=== PATIENT | male | born 1960 | race Caucasian/White ===

== ENCOUNTER 2017-03-05 10:52 | Inpatient (IN) ==
[2017-03-05] MEDS ORDERED: CeFAZolin Pre 2,000 MG/100 ML 2,000 MG/100 ML BAG IVPB ONE (11:07)
[2017-03-05] MEDS ORDERED: Albuterol 2.5 MG/3 ML NEBULIZER IH ONE (11:07)
[2017-03-05] MEDS ORDERED: Ringers Solution, Lactated 1,000 ML IVC SCH (11:15)
[2017-03-05] MEDS ORDERED: *HR* FentaNYL (PF) 100 MCG/2 ML VIAL ONE ×2 (11:18→12:56)
[2017-03-05] MEDS ORDERED: *HR* Midazolam HCl 2 MG/2 ML VIAL ONE ×2 (11:19→12:12)
[2017-03-05] MEDS ORDERED: *HR* Propofol 200 MG/20 ML VIAL IVP ONE (11:19)
[2017-03-05] MEDS ORDERED: Gabapentin 300 MG CAPSULE PO ONE (11:24)
[2017-03-05] MEDS ORDERED: Famotidine 20 MG/2 ML VIAL IVP ONE (11:24)
[2017-03-05] MEDS ORDERED: Acetaminophen IV 1,000 MG/100 ML INFUS..BTL IVPB ONE (11:24)
[2017-03-05] MEDS ORDERED: Heparin 1,000 UNITS/500 mL NS 500 ML ONE (11:45)
--- NOTE | 2017-03-05 11:50 | Anesthesia Evaluation PreOp ---
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: Denies Any Significant HX Other Medical History: Denies Any Significant HX Anesthesia History: No Prior Anesthetic Complications Alcohol Use: none Drug use: marijuana Medications and Allergies Allergies No Known Allergies Allergy (Verified 03/05/17 11:07) - Meds/Allergy Pre-op Review Medications Reviewed: Yes Allergies Reviewed: Yes Beta Blockers on Current Med List: No Anesthesia Results - Labs Laboratory Tests 02/14/17 02/14/17 15:36 15:36 Hgb 14.9 Hct 41.1 Plt Count 298 Sodium 139 Potassium 3.9 BUN 18 Creatinine 1.06 Type and Screen Anesthesia Exam O2 Sat Height 1.73 m Height 1.73 m Weight 85.275 kg Weight 85.275 kg Height: 5'8 Weight: 188 lbs NPO (# of Hours): MN Pain Scale: 0 - HEENT Pupil (Motor): Pupils equal, EOMI Mallampati: II Teeth: Normal Oral Opening: Greater than 3 - GERMINATION TESTING MANAGER LOC: Oriented GERMINATION TESTING MANAGER Motor: Normal RUE, Normal LUE, Normal RLE, Normal LLE, Normal Face GERMINATION TESTING MANAGER Sensory: Normal: RUE, LUE, RLE, LLE, Face - Cardiac Rhythm: Regular Murmur: None JVD: No Carotid Bruit: No - Pulmonary Breath Sounds: bilateral Clear Respiratory Effort: Symmetrical Anesthesia Assess/Plan ASA Score: 2 Modified Christopher Scale for Level of Consciousness: Cooperative, oriented, and tranquil Anesthetic Plan: General Monitoring Plan: Standard Monitors Recovery Plan: PACU (Discussed GA, agrees to proceed)
--- NOTE | 2017-03-05 11:50 | History & Physical Report ---
Date of Encounter: 03/05/17 Time of Encounter: 11:49 24 Hour HP Update - Instructions Instructions: If the History and Physical is less than 30 days old and was completed prior to A.M. admission and or procedure and has NOT been updated on calendar day of procedure please complete this update prior to performing procedure. - Update Patient reports changes in Medical Condition: No Changes in examination, assessment, or condition: No Changes in Medication: No Preop tests/diagnostics Reviewed: Yes Surgery Remains Indicated: Yes Consent for Planned Operative Procedure(s) Verified: Yes - Pre-Operative Checklist Preoperative Checklist Indicated: Yes Prophylactic Antibiotic Ordered: Yes Home Medications Include Beta Katarina: No Beta Katarina Taken Today (Day of Surgery): No Beta Katarina Taken Yesterday (Day Prior to Surgery): No Is VTE Prophylaxis Indicated?: Yes
[2017-03-05] MEDS ORDERED: Bupivacaine/EPI 1:200k 0.25%PF 30 ML VIAL ONE (11:53)
[2017-03-05] MEDS ORDERED: Lidocaine -MPF 2% 2 ML VIAL ONE (12:10)
[2017-03-05] MEDS ORDERED: *HR* Metoprolol 5 MG/5 ML VIAL IVP ONE (12:52)
[2017-03-05] MEDS ORDERED: Propofol 500 MG/50 ML INFUS..BTL ONE (12:52)
[2017-03-05] MEDS ORDERED: *HR* HYDROmorphone 2 MG/ML SYRINGE ONE (13:38)
[2017-03-05] MEDS ORDERED: Dexamethasone 4 MG/ML VIAL ONE (13:45)
[2017-03-05] MEDS ORDERED: Ondansetron 4 MG/2 ML VIAL ONE (13:45)
[2017-03-05] MEDS ORDERED: *HR* Rocuronium Bromide 50 MG/5 ML VIAL ONE (14:05)
[2017-03-05] MEDS ORDERED: Neostigmine Methylsulfate 3 MG/3 ML SYRINGE ONE (14:09)
[2017-03-05] MEDS ORDERED: *HR* Labetalol 20 MG/4 ML SYRINGE IVP ONE ×2 (14:59→15:22)
[2017-03-05] MEDS ORDERED: *HR* Promethazine 25 MG/ML VIAL IVP PRN ×2 (15:08→15:09)
[2017-03-05] MEDS ORDERED: *HR* HYDROmorphone (PF) 1 MG/ML SYRINGE IVP PRN ×2 (15:08→15:09)
[2017-03-05] MEDS ORDERED: *HR* Promethazine 25 MG/ML VIAL ONE (15:09)
[2017-03-05] MEDS ORDERED: Ondansetron 4 MG/2 ML VIAL IVP ONE (15:09)
[2017-03-05] MEDS ORDERED: *HR* Labetalol 20 MG/4 ML SYRINGE IVP PRN (15:11)
--- NOTE | 2017-03-05 15:12 | Operative Note ---
Date of procedure: 03/05/17 Pre-op diagnosis: Left renal mass Post-op diagnosis: same Procedure: Hand-assisted laparoscopic left radical nephrectomy Anesthesia: UCHE Surgeon: Jimmy Cordero Estimated blood loss (cc): 50 Specimen: Kidney Condition: stable Disposition: PACU Procedure in Detail: Patient was taken back to the operating room positioned supine on the operating table. Anesthesia was applied without complication. Smith catheter was placed with return of clear urine. Patient was then moved into position which was a modified left lateral with the patient's left flank up approximately 45. Beanbag was positioned beneath the patient to aid in securing the patient's position. Left arm was brought over and secured with a pillow over the right arm. Patient was taped down and a leather strap used for security. Patient was prepped and draped sterile fashion timeout was performed from the proper patient and procedure. CT scan images were displaced in the room which confirmed a 7 cm posterior left renal mass. Started the procedure with a 15 blade scalpel to make a 7 cm incision to the left aspect of the umbilicus. Underlying tissue was dissected elect cautery Bovie. The fascia was encountered and incised with the Bovie. I then bluntly entered the peritoneal cavity and carefully dissected enough space to allow for the gelport. GelPort was placed without complication and a 12 mm trocar was placed through the port to provide pneumoperitoneum. I examined the abdomen with a 0 camera to confirm there were minimal adhesions. I then removed the port in place my hand through the GelPort. Under guidance of my hand I placed two 12 mm ports. The first was in the midline below the xiphoid process. The second was in the left lower quadrant. They were placed without complication. Using a Harmonic scalpel identified and dissected the white line of Toldt to reflect the left hemicolon. Dissection was carried out from the splenocolic juncture down to the sigmoid colon. I had excellent exposure of the retroperitoneum. Blunt dissection was carried out posterior and inferior to the kidney. I was able to eventually identify the gonadal vein but did not ligate the vein. The ureter was identified and transected using the Harmonic. This provided excellent access to the hilar area of the kidney. I was able to palpate the pulsatile renal artery. I gently dissected around the hilar area with my index finger to create a space for the endovascular stapler. I obtain the 45 mm articulating endovascular stapler and was able to gently place this around the hilar vessels. The hilar vessels were stapled and transected without significant bleeding. I used 4 additional vascular loads to carry out my dissection superior to this and across the adrenal gland. The remaining attachments were dissected using the Harmonic until the kidney was completely free. I used the large Endo Catch bag and placed this through the hand port was able to maneuver the kidney into the Endo Catch bag. I was able to extract the kidney through the HandPort without enlarging the incision. I re-administered pneumoperitoneum and carefully examine the hilum. laps had been removed from the abdomen at this point and there was no significant bleeding from the hilum or splenic area. I placed 2 Surgicel in the hilar space and draped the colon back over the hilum. bowel appeared intact without injury. I then removed the GelPort closed the fascia with a #1 loop PDS. Eloina's fascia was closed with a 2-0 Vicryl and the skin with 4-0 Monocryl and Dermabond. The to 12 mm port sites were closed with Vicryl and Monocryl and Dermabond. All counts were correct at the end the procedure. There were no major complications during the procedure. Blood loss was minimal at 50 mL
--- NOTE | 2017-03-05 15:47 | Anesthesia Evaluation Post Op ---
Date of Encounter: 03/05/17 Time of Encounter: 15:45 - Vital Signs Vital Signs: Vital Signs/O2 Sat/Glucose, Most Current Temp Pulse Resp BP Pulse Ox 03/05/17 15:41 98.3 F 75 13 156/90 98 03/05/17 15:31 98.3 F 77 12 151/88 97 03/05/17 15:21 86 12 170/93 98 03/05/17 15:11 86 12 160/92 97 03/05/17 15:01 99 F 90 14 161/93 100 03/05/17 11:57 98.2 F 83 18 163/102 96 - Lungs Lungs: Clear Ascult./Percussion - Airway Airway: Non-obstructed - Cardiovascular Regular Rate - Mental Status Mental Status: Alert & Oriented, Answers Appropriately - Pain Pain Scale: 0 - Nausea Vomiting Nausea Vomiting: Not Present - Hydration Hydration: Ice chips - Discharge PostOp Status: Transfer Patient to floor
[2017-03-05] MEDS ORDERED: *HR* Promethazine 25 MG/ML VIAL IV PRN (16:04)
[2017-03-05] MEDS ORDERED: *HR* Morphine 2 MG/ML SYRINGE IVP PRN (16:04)
[2017-03-05] MEDS ORDERED: hydrALAZINE 10 MG TABLET PO PRN (16:04)
[2017-03-05] MEDS ORDERED: Ondansetron 4 MG/2 ML VIAL IVP PRN (16:04)
[2017-03-05] MEDS ORDERED: Naloxone 0.4 MG/ML INJ IVP PRN (16:04)
[2017-03-05] MEDS: 0.9 % Sodium Chloride 1,000 ML IVC SCH (16:55)
[2017-03-05] MEDS: ceFAZolin 2,000 MG in D5% in Water 100 ML IVPB SCH (17:46)
[2017-03-05] MEDS: *HR* HYDROmorphone (PF) 1 MG/ML SYRINGE IVP PRN ×2 (19:09→22:50)
[2017-03-06] MEDS: ceFAZolin 2,000 MG in D5% in Water 100 ML IVPB SCH (00:44)
[2017-03-06] MEDS: 0.9 % Sodium Chloride 1,000 ML IVC SCH (00:46)
[2017-03-06] MEDS: *HR* HYDROmorphone (PF) 1 MG/ML SYRINGE IVP PRN ×2 (01:45→06:45)
[2017-03-06 05:26] LABS: Basophils % 0.2 %; Hemoglobin 14.6 g/dL (12.9-16.9); Immature Granulocytes % 0.4 % (0-4); Lymphocytes # 1.2 K/mcL (0.6-4.6); Lymphocytes % 7.1 %; Mean Corpuscular Hemoglobin 31.3 pg (28.0-33.3); Mean Corpuscular Volume 92.1 fL (83.0-100.0); Monocytes # 1.4 K/mcL (0.0-1.3); Monocytes % 8.6 %; Platelet Count 216 K/mcL (140-400); Red Blood Count 4.67 M/mcL (4.19-5.50); Red Cell Distribution Width 13.1 % (11.5-14.5); Segmented Neutrophils % 83.7 %
[2017-03-06 05:35] LABS: BUN/Creatinine Ratio 12 (6-26); Blood Urea Nitrogen 14 mg/dL (8-26); Carbon Dioxide 25 mEq/L (19-29); Chloride 104 mEq/L (98-109); Glucose 120 mg/dL (70-99); Osmolality,Calculated 286 (280-300); Potassium 4.2 mEq/L (3.5-4.5); Sodium 137 mEq/L (136-145); eGFR For African Americans > 60 (> 60); eGFR For Non-African Americans > 60 (> 60)
[2017-03-06] MEDS ORDERED: hydrALAZINE 25 MG TABLET PO PRN (07:25)
--- NOTE | 2017-03-06 07:30 | Urology Progress Note ---
Date of Encounter: 03/06/17 Time of Encounter: 07:27 - Assessment and Plan (1) Renal mass Current Visit: Yes Status: Acute Assessment and plan: POD#1 lap nephrectomy. increase HTN meds. remove pedersen. stop IVF. advance diet. start PO pain meds. pt doing great. he will ambulate today. Progress Note Subjective: no new complaints, pain is less, tolerating liquids well, no flatus Narrative: states feels OK Objective Initial Vital Signs Temp Pulse Resp BP Pulse Ox 98.2 F 83 18 163/102 96 03/05/17 11:57 03/05/17 11:57 03/05/17 11:57 03/05/17 11:57 03/05/17 11:57 - General physical appearance Present: well developed, no distress - Additional Exam abd soft. eccyhmosis around incision. all dressings removed. - Labs 03/06/17 04:56 03/06/17 04:56 Diabetes panel 03/06/17 Range/Units 04:56 Sodium 137 (136-145) mEq/L Potassium 4.2 (3.5-4.5) mEq/L Chloride 104 (98-109) mEq/L Carbon Dioxide 25 (19-29) mEq/L BUN 14 (8-26) mg/dL Creatinine 1.21 (0.72-1.25) mg/dL Glucose 120 H (70-99) mg/dL Calcium 9.0 (8.6-10.8) mg/dL Calcium panel 03/06/17 Range/Units 04:56 Calcium 9.0 (8.6-10.8) mg/dL Pituitary panel 03/06/17 Range/Units 04:56 Sodium 137 (136-145) mEq/L Potassium 4.2 (3.5-4.5) mEq/L Chloride 104 (98-109) mEq/L Carbon Dioxide 25 (19-29) mEq/L BUN 14 (8-26) mg/dL Creatinine 1.21 (0.72-1.25) mg/dL Glucose 120 H (70-99) mg/dL Calcium 9.0 (8.6-10.8) mg/dL Adrenal panel 03/06/17 Range/Units 04:56 Sodium 137 (136-145) mEq/L Potassium 4.2 (3.5-4.5) mEq/L Chloride 104 (98-109) mEq/L Carbon Dioxide 25 (19-29) mEq/L BUN 14 (8-26) mg/dL Creatinine 1.21 (0.72-1.25) mg/dL Glucose 120 H (70-99) mg/dL Calcium 9.0 (8.6-10.8) mg/dL - VTE Documentation of Mechanical Device: Intermittent pneumatic compression device Consult Discharge Plan - Plan Referrals: NONE,PCP [Primary Care Provider] -
[2017-03-06] MEDS: *HR* OxyCODONE/APAP 5/325 TABLET PO PRN ×2 (08:23→12:33)
[2017-03-06 11:40] VITALS: BP 167/93
--- NOTE | 2017-03-06 11:55 | Discharge Summary ---
Date of Encounter: 03/06/17 Time of Encounter: 11:53 - Discharge Diagnosis (1) Renal mass Priority: Primary Status: Acute - Discharge Medications Prescriptions: OxyCODONE/APAP 5/325 [Percocet 5/325 MG] 1 each PO Q4HR PRN #30 tab PRN Reason: Pain hydrALAZINE [HydrALAZINE] 25 mg PO Q8HR #120 tab Metoprolol [Lopressor] 25 mg PO Q8HR #120 tab Home Medications: Metoprolol [Lopressor] 25 mg PO Q8HR #120 tab 03/06/17 [Rx] OxyCODONE/APAP 5/325 [Percocet 5/325 MG] 1 each PO Q4HR PRN #30 tab 03/06/17 [Rx ] hydrALAZINE [HydrALAZINE] 25 mg PO Q8HR #120 tab 03/06/17 [Rx] Allergies/Adverse Reactions: Allergies No Known Allergies Allergy (Verified 03/05/17 12:06) Labs on day of discharge: Labs from last 24 hours 03/06/17 03/06/17 03/05/17 04:56 04:56 11:51 WBC 16.7 H RBC 4.67 Hgb 14.6 Hct 43.0 MCV 92.1 MCH 31.3 MCHC 34.0 RDW 13.1 Plt Count 216 MPV 11.0 Immature Gran % 0.4 Seg Neutrophils % 83.7 Lymphocytes % 7.1 Monocytes % 8.6 Eosinophils % 0.0 Basophils % 0.2 Neutrophils # 14.0 H Lymphocytes # 1.2 Monocytes # 1.4 H Eosinophils # 0.0 Basophils # 0.0 Sodium 137 Potassium 4.2 Chloride 104 Carbon Dioxide 25 BUN 14 Creatinine 1.21 Est GFR ( Amer) > 60 Est GFR (Non-Af Amer) > 60 BUN/Creatinine Ratio 12 Glucose 120 H Calculated Osmolality 286 Calcium 9.0 Blood Type A POSITIVE Antibody Screen NEGATIVE Date of admission: 03/05/17 15:53 Primary care physician: PCP [facility] Discharging clinician: Jimmy Cordero Anticipated date of discharge: 03/06/17 - Patient Status Disposition: Home, Self-Care Condition: Good Functional capacity at discharge: independent ambulation Overall status at discharge: patient is progressing back to baseline - Discharge Instructions Follow Up With: NONE,PCP [Primary Care Provider] - Jimmy Cordero MD [Partnered Physician] - (1-2 weeks) Additional Instructions: Okay to shower Avoid baths and swimming Okay to drive when off of pain medication and pain is limited Avoid heavy lifting, heavy activity, straining for at least 2 weeks preferably for 4 weeks Okay to keep incisions open to air. No need to place antibiotic ointment Call the office or go to the emergency room for severe abdominal pain, excessive nausea vomiting, fever over 101. Stay hydrated with water. Appetite may not be normal for 4 weeks - this is normal Avoid Motrin, Naprosyn and other NSAIDs - Diet and Activity Activity: other Diet: advance to your usual diet - Hospital Course Hospital course: Mr. Mayer is a 56 year old male postoperative day 1 from a laparoscopic hand- assisted radical nephrectomy. Patient is doing fantastic. Labs were normal as morning. Vital signs are stable except for ongoing high blood pressure. It has improved with oral medication. We suspect essential hypertension that was undiagnosed admission. We'll continue medication at discharge with a primary care follow-up. Patient's catheter has been removed and is voiding well. He is tolerating plenty of water and some food. Able to transfer himself out of bed and ambulate. Pain is controlled with oral pain medication. Patient desires discharge I feel it is safe at this time. - Time Spent with Patient Total time spent providing and/or coordinating discharge services: Less than 30 minutes Exam Initial Vital Signs Temp Pulse Resp BP Pulse Ox 98.2 F 83 18 163/102 96 03/05/17 11:57 03/05/17 11:57 03/05/17 11:57 03/05/17 11:57 03/05/17 11:57 - General physical appearance Present: well developed, no distress - Additional Findings ambulating - VTE Documentation of Mechanical Device: Intermittent pneumatic compression device
[2017-03-06] MEDS ORDERED: Sennosides/Docusate Sodium TABLET PO PRN (12:42)
== END 2017-03-06 13:49 | disposition home or self-care (01) | DRG 658 ==
LOC: SAMDAY 10:52 → 3NENU 15:53
PROVIDERS: ADMIT Urology; ATTEND Urology

== ENCOUNTER 2020-10-25 15:59 | Inpatient (IN) ==
[2020-10-25] MEDS ORDERED: Nitroglycerin 1,000 MCG/5 ML VIAL IV ONE (16:04)
[2020-10-25] MEDS ORDERED: *HR* Heparin 10,000 UNIT/10 ML VIAL ONE (16:04)
[2020-10-25] MEDS ORDERED: ISOVUE-370 200 ML INFUS..BTL ONE ×2 (16:04→17:23)
[2020-10-25] MEDS ORDERED: Heparin 1,000 UNITS/500 mL 500 ML ONE (16:04)
[2020-10-25] MEDS ORDERED: 0.9 % Sodium Chloride 2,000 ML ONE (16:04)
[2020-10-25] MEDS ORDERED: *HR* Bivalirudin 250 MG VIAL IVC ONE (16:38)
[2020-10-25] MEDS ORDERED: *HR* Midazolam HCl 2 MG/2 ML VIAL ONE (17:05)
[2020-10-25] MEDS ORDERED: *HR* FentaNYL (PF) 100 MCG/2 ML VIAL ONE (17:05)
[2020-10-25] MEDS ORDERED: Perflutren Lipid Microsphere 1.3 ML in 0.9 % Sodium Chloride 8.7 ML IVP PRN (18:05)
[2020-10-25] MEDS ORDERED: 0.9 % Sodium Chloride 1,000 ML IVC SCH (18:15)
[2020-10-25] MEDS ORDERED: *HR* Atropine Sulfate 1 MG/10 ML SYRINGE ONE (20:52)
[2020-10-25] MEDS: *HR* Ticagrelor 90 MG TABLET PO SCH (21:39)
[2020-10-25] MEDS: Metoprolol XL (24 HR) Succ 25 MG TAB.ER.24H PO SCH (21:39)
[2020-10-25] MEDS ORDERED: Morphine Sulfate 2 MG/ML SYRINGE IVP ONE (22:56)
[2020-10-26 01:32] LABS: Basophils # 0.1 K/mcL (0.0-0.2); Basophils % 0.4 %; Eosinophils # 0.1 K/mcL (0.0-0.6); Eosinophils % 0.5 %; Hematocrit 44.3 % (37.5-50.1); Hemoglobin 15.2 g/dL (12.9-16.9); Immature Granulocytes % 0.2 % (0-4); Lymphocytes % 16.2 %; Mean Corpuscular HGB Conc 34.3 g/dL (31.6-35.5); Mean Corpuscular Volume 93.3 fL (83.0-100.0); Mean Platelet Volume 10.9 fL (9.4-12.4); Monocytes # 1.4 K/mcL (0.0-1.3); Monocytes % 11.6 %; Neutrophils # 8.6 K/mcL (1.6-8.9); Platelet Count 234 K/mcL (140-400); Red Blood Count 4.75 M/mcL (4.19-5.50); Red Cell Distribution Width 12.8 % (11.5-14.5); Segmented Neutrophils % 71.1 %; White Blood Count 12.1 K/mcL (4.3-11.1)
[2020-10-26 01:59] LABS: BUN/Creatinine Ratio 14 (6-26); Blood Urea Nitrogen 10 mg/dL (8-23); Calcium 8.8 mg/dL (8.6-10.3); Carbon Dioxide 21 mEq/L (23-29); Chloride 108 mEq/L (98-107); Chol/HDL Ratio 3.4 (0-4.9); Cholesterol 121 mg/dL (< 200); Glucose 104 mg/dL (70-105); HDL Cholesterol 36 mg/dL (40-59); LDL Cholesterol,Calculated 72 mg/dL (< 100); Osmolality,Calculated 287 (280-300); Potassium 3.4 mEq/L (3.5-5.1); Sodium 139 mEq/L (136-145); Triglycerides 63 mg/dL (< 150); Troponin I 37.87 ng/mL (< 0.04); eGFR For African Americans > 60 (> 60); eGFR For Non-African Americans > 60 (> 60)
[2020-10-26 02:11] LABS: Thyroid Stimulating Hormone 1.052 mcIU/mL (0.340-5.600)
[2020-10-26 02:32] LABS: Estimated Average Glucose 114 mg/dl; Hemoglobin A1C 5.6 %
[2020-10-26] MEDS: Metoprolol XL (24 HR) Succ 25 MG TAB.ER.24H PO SCH ×2 (07:21→19:49)
[2020-10-26] MEDS: *HR* Ticagrelor 90 MG TABLET PO SCH ×2 (07:21→19:49)
[2020-10-26] MEDS: Aspirin 81 MG TAB.CHEW PO SCH (07:21)
[2020-10-26] MEDS: lisinopriL 5 MG TABLET PO SCH (07:21)
[2020-10-27 01:12] LABS: Basophils # 0.1 K/mcL (0.0-0.2); Basophils % 0.7 %; Eosinophils # 0.2 K/mcL (0.0-0.6); Hematocrit 44.5 % (37.5-50.1); Hemoglobin 14.8 g/dL (12.9-16.9); Immature Granulocytes % 0.4 % (0-4); Lymphocytes # 3.1 K/mcL (0.6-4.6); Lymphocytes % 27.4 %; Mean Corpuscular HGB Conc 33.3 g/dL (31.6-35.5); Mean Corpuscular Hemoglobin 31.4 pg (28.0-33.3); Mean Corpuscular Volume 94.5 fL (83.0-100.0); Monocytes # 1.5 K/mcL (0.0-1.3); Monocytes % 13.4 %; Neutrophils # 6.3 K/mcL (1.6-8.9); Platelet Count 224 K/mcL (140-400); Red Blood Count 4.71 M/mcL (4.19-5.50); Red Cell Distribution Width 12.8 % (11.5-14.5); Segmented Neutrophils % 56.1 %; White Blood Count 11.2 K/mcL (4.3-11.1)
[2020-10-27 01:37] LABS: BUN/Creatinine Ratio 23 (6-26); Blood Urea Nitrogen 23 mg/dL (8-23); Calcium 8.9 mg/dL (8.6-10.3); Carbon Dioxide 24 mEq/L (23-29); Chloride 107 mEq/L (98-107); Glucose 97 mg/dL (70-105); Osmolality,Calculated 292 (280-300); Potassium 3.5 mEq/L (3.5-5.1); Sodium 139 mEq/L (136-145); eGFR For African Americans > 60 (> 60); eGFR For Non-African Americans > 60 (> 60)
[2020-10-27] MEDS: *HR* Ticagrelor 90 MG TABLET PO SCH ×2 (08:58→21:32)
[2020-10-27] MEDS: Aspirin 81 MG TAB.CHEW PO SCH (08:58)
[2020-10-27] MEDS: lisinopriL 5 MG TABLET PO SCH (08:58)
[2020-10-27] MEDS: Metoprolol XL (24 HR) Succ 25 MG TAB.ER.24H PO SCH ×2 (08:58→21:32)
[2020-10-27] MEDS: 0.9 % Sodium Chloride 1,000 ML IVC SCH (15:27)
[2020-10-28] MEDS: 0.9 % Sodium Chloride 1,000 ML IVC SCH (04:40)
[2020-10-28 04:43] LABS: Basophils # 0.1 K/mcL (0.0-0.2); Basophils % 0.8 %; Eosinophils # 0.4 K/mcL (0.0-0.6); Eosinophils % 3.3 %; Hematocrit 43.4 % (37.5-50.1); Hemoglobin 14.8 g/dL (12.9-16.9); Immature Granulocytes % 0.3 % (0-4); Lymphocytes # 2.8 K/mcL (0.6-4.6); Lymphocytes % 26.9 %; Mean Corpuscular HGB Conc 34.1 g/dL (31.6-35.5); Mean Corpuscular Hemoglobin 32.1 pg (28.0-33.3); Mean Corpuscular Volume 94.1 fL (83.0-100.0); Mean Platelet Volume 10.9 fL (9.4-12.4); Monocytes # 1.1 K/mcL (0.0-1.3); Monocytes % 10.6 %; Neutrophils # 6.1 K/mcL (1.6-8.9); Platelet Count 208 K/mcL (140-400); Red Blood Count 4.61 M/mcL (4.19-5.50); Red Cell Distribution Width 12.9 % (11.5-14.5); Segmented Neutrophils % 58.1 %; White Blood Count 10.5 K/mcL (4.3-11.1)
[2020-10-28 05:02] LABS: BUN/Creatinine Ratio 24 (6-26); Blood Urea Nitrogen 23 mg/dL (8-23); Calcium 8.8 mg/dL (8.6-10.3); Carbon Dioxide 23 mEq/L (23-29); Chloride 109 mEq/L (98-107); Glucose 96 mg/dL (70-105); Osmolality,Calculated 292 (280-300); Potassium 3.5 mEq/L (3.5-5.1); Sodium 139 mEq/L (136-145); eGFR For African Americans > 60 (> 60); eGFR For Non-African Americans > 60 (> 60)
[2020-10-28] MEDS: lisinopriL 5 MG TABLET PO SCH (08:48)
[2020-10-28] MEDS: Metoprolol XL (24 HR) Succ 25 MG TAB.ER.24H PO SCH ×2 (08:48→21:42)
[2020-10-28] MEDS: Aspirin 81 MG TAB.CHEW PO SCH (08:48)
[2020-10-28] MEDS: *HR* Ticagrelor 90 MG TABLET PO SCH ×2 (08:48→21:42)
[2020-10-28] MEDS ORDERED: 0.9 % Sodium Chloride 2,000 ML ONE (12:44)
[2020-10-28] MEDS ORDERED: ISOVUE-370 200 ML INFUS..BTL ONE (12:44)
[2020-10-28] MEDS ORDERED: Nitroglycerin 1,000 MCG/5 ML VIAL IV ONE (12:44)
[2020-10-28] MEDS ORDERED: Heparin 1,000 UNITS/500 mL 500 ML ONE (12:44)
[2020-10-28] MEDS ORDERED: *HR* Heparin 10,000 UNIT/10 ML VIAL ONE (12:44)
[2020-10-28] MEDS ORDERED: *HR* FentaNYL (PF) 100 MCG/2 ML VIAL ONE (12:54)
[2020-10-28] MEDS ORDERED: *HR* Midazolam HCl 2 MG/2 ML VIAL ONE (12:54)
[2020-10-29 06:09] LABS: Basophils # 0.1 K/mcL (0.0-0.2); Basophils % 0.5 %; Eosinophils # 0.5 K/mcL (0.0-0.6); Eosinophils % 4.8 %; Hematocrit 40.6 % (37.5-50.1); Hemoglobin 13.7 g/dL (12.9-16.9); Immature Granulocytes % 0.2 % (0-4); Lymphocytes # 2.4 K/mcL (0.6-4.6); Lymphocytes % 24.2 %; Mean Corpuscular HGB Conc 33.7 g/dL (31.6-35.5); Mean Corpuscular Hemoglobin 32.4 pg (28.0-33.3); Mean Platelet Volume 10.8 fL (9.4-12.4); Monocytes % 10.3 %; Platelet Count 199 K/mcL (140-400); Red Blood Count 4.23 M/mcL (4.19-5.50); Red Cell Distribution Width 12.7 % (11.5-14.5)
[2020-10-29 06:24] LABS: BUN/Creatinine Ratio 20 (6-26); Blood Urea Nitrogen 18 mg/dL (8-23); Calcium 8.6 mg/dL (8.6-10.3); Carbon Dioxide 22 mEq/L (23-29); Chloride 111 mEq/L (98-107); Glucose 97 mg/dL (70-105); Osmolality,Calculated 290 (280-300); Potassium 3.8 mEq/L (3.5-5.1); Sodium 139 mEq/L (136-145); eGFR For African Americans > 60 (> 60); eGFR For Non-African Americans > 60 (> 60)
[2020-10-29 07:19] VITALS: BP 119/93
[2020-10-29] MEDS: *HR* Ticagrelor 90 MG TABLET PO SCH (07:37)
[2020-10-29] MEDS: lisinopriL 5 MG TABLET PO SCH (07:37)
[2020-10-29] MEDS: Metoprolol XL (24 HR) Succ 25 MG TAB.ER.24H PO SCH (07:38)
[2020-10-29] MEDS: Aspirin 81 MG TAB.CHEW PO SCH (07:38)
[2020-10-29] MEDS ORDERED: FLU Vac QV 20-21 (6Month+)/PF 0.5 ML SYRINGE IM ONE (10:12)
== END 2020-10-29 11:34 | disposition home or self-care (01) | DRG 174 ==
LOC: 2NNU
PROVIDERS: ADMIT Internal Medicine Interventional Cardiology; ATTEND Internal Medicine Interventional Cardiology

== ENCOUNTER 2021-07-29 11:54 | Inpatient (IN) ==
[2021-07-29] MEDS ORDERED: Morphine Sulfate 2 MG/ML SYRINGE IVP ONE (12:20)
[2021-07-29] MEDS ORDERED: Ondansetron 4 MG/2 ML VIAL IVP ONE (12:20)
[2021-07-29] MEDS ORDERED: 0.9 % Sodium Chloride 1,000 ML IV ONE (12:27)
[2021-07-29 12:35] LABS: Basophils # 0.1 K/mcL (0.0-0.2); Basophils % 0.7 %; Eosinophils # 0.1 K/mcL (0.0-0.6); Eosinophils % 0.9 %; Hematocrit 44.8 % (37.5-50.1); Immature Granulocytes % 0.3 % (0-4); Lymphocytes # 1.4 K/mcL (0.6-4.6); Lymphocytes % 10.6 %; Mean Corpuscular HGB Conc 33.5 g/dL (31.6-35.5); Mean Corpuscular Hemoglobin 31.9 pg (28.0-33.3); Mean Corpuscular Volume 95.3 fL (83.0-100.0); Mean Platelet Volume 10.7 fL (9.4-12.4); Monocytes # 0.6 K/mcL (0.0-1.3); Monocytes % 4.3 %; Neutrophils # 11.2 K/mcL (1.6-8.9); Platelet Count 285 K/mcL (140-400); Red Cell Distribution Width 14.7 % (11.5-14.5); Segmented Neutrophils % 83.2 %; White Blood Count 13.5 K/mcL (4.3-11.1)
[2021-07-29 13:00] LABS: Albumin 4.7 g/dL (3.5-5.7); Albumin/Globulin Ratio 1.4 (1.1-2.2); Bilirubin,Direct 0.3 mg/dL (0.0-0.2); Bilirubin,Indirect 0.9 mg/dL (0.0-1.0); Bilirubin,Total 1.2 mg/dL (0.3-1.0); Calcium 10.2 mg/dL (8.6-10.3); Globulin 3.3 g/dL (2.4-3.5); Potassium 3.7 mEq/L (3.5-5.1)
[2021-07-29] MEDS ORDERED: *HR* HYDROmorphone (PF) 1 MG/ML SYRINGE IVP ONE ×2 (13:09→14:08)
[2021-07-29] MEDS ORDERED: cefTRIAXone 1,000 MG in 0.9 % Sodium Chloride Mini Bag 100 ML IVPB SCH (14:50)
[2021-07-29] MEDS ORDERED: Melatonin 3 MG TABLET PO PRN (15:13)
[2021-07-29] MEDS ORDERED: Naloxone 0.4 MG/ML INJ IVP PRN (15:13)
[2021-07-29] MEDS ORDERED: Ondansetron 4 MG/2 ML VIAL IVP PRN ×2 (15:13→18:16)
[2021-07-29] MEDS ORDERED: *HR* HYDROmorphone (PF) 1 MG/ML SYRINGE IVP PRN (15:15)
[2021-07-29] MEDS ORDERED: 0.9 % Sodium Chloride 1,000 ML IVC SCH (15:15)
[2021-07-29 15:21] LABS: INR 1.1
[2021-07-29] MEDS ORDERED: Lidocaine -MPF 2% 5 ML VIAL ONE (17:31)
[2021-07-29] MEDS ORDERED: Ondansetron 4 MG/2 ML VIAL ONE ×2 (17:31→18:38)
[2021-07-29] MEDS ORDERED: *HR* Midazolam HCl 2 MG/2 ML VIAL ONE (17:31)
[2021-07-29] MEDS ORDERED: *HR* FentaNYL (PF) 100 MCG/2 ML VIAL ONE (17:31)
[2021-07-29] MEDS ORDERED: *HR* Propofol 200 MG/20 ML VIAL IVP ONE (17:31)
[2021-07-29] MEDS ORDERED: *HR* Rocuronium Bromide 50 MG/5 ML VIAL ONE (17:37)
[2021-07-29] MEDS ORDERED: *HR* HYDROMORPHONE 2 MG/ML VIAL ONE (17:54)
[2021-07-29] MEDS ORDERED: Famotidine 20 MG/2 ML VIAL ONE (18:05)
[2021-07-29] MEDS ORDERED: Acetaminophen IV 1,000 MG/100 ML BAG IVPB ONE (18:05)
[2021-07-29] MEDS ORDERED: Isovue-300 50ML VIAL ONE (18:48)
[2021-07-29] MEDS ORDERED: 0.9 % Sodium Chloride 1,000 ML IVC ONE (19:49)
[2021-07-29] MEDS ORDERED: hydrOXYzine pamoate 25 MG CAPSULE PO PRN (20:28)
[2021-07-29] MEDS ORDERED: Albuterol 2.5 MG/3 ML NEBULIZER IH PRN (20:28)
[2021-07-29] MEDS: *HR* Ticagrelor 90 MG TABLET PO SCH (21:49)
[2021-07-30] MEDS: amLODIPine 5 MG TABLET PO SCH (07:52)
[2021-07-30] MEDS: Aspirin 81 MG TAB.CHEW PO SCH (07:53)
[2021-07-30] MEDS: Metoprolol XL (24 HR) Succ 25 MG TAB.ER.24H PO SCH (07:53)
[2021-07-30] MEDS: *HR* Ticagrelor 90 MG TABLET PO SCH ×2 (07:53→21:20)
[2021-07-30] MEDS ORDERED: Melatonin 3 MG TABLET PO PRN (07:56)
[2021-07-30] MEDS ORDERED: *HR* HYDROcodone/Acet 5/325 mg TABLET PO PRN (07:56)
[2021-07-30] MEDS ORDERED: Naloxone 0.4 MG/ML INJ IVP PRN (07:56)
[2021-07-30] MEDS ORDERED: Ondansetron 4 MG/2 ML VIAL IVP PRN (07:56)
[2021-07-30] MEDS ORDERED: 0.9 % Sodium Chloride 1,000 ML IVC SCH (08:00)
[2021-07-30] MEDS ORDERED: lisinopriL 10 MG TABLET PO SCH (09:00)
[2021-07-30 09:08] LABS: Calcium 9.3 mg/dL (8.6-10.3); Potassium 4.1 mEq/L (3.5-5.1)
[2021-07-30 09:23] LABS: Basophils % 0.2 %; Hematocrit 40.8 % (37.5-50.1); Immature Granulocytes % 0.5 % (0-4); Lymphocytes # 1.5 K/mcL (0.6-4.6); Mean Corpuscular HGB Conc 34.3 g/dL (31.6-35.5); Mean Corpuscular Volume 96.2 fL (83.0-100.0); Mean Platelet Volume 10.9 fL (9.4-12.4); Monocytes # 1.6 K/mcL (0.0-1.3); Monocytes % 6.6 %; Neutrophils # 21.5 K/mcL (1.6-8.9); Platelet Count 271 K/mcL (140-400); Red Blood Count 4.24 M/mcL (4.19-5.50); Red Cell Distribution Width 15.1 % (11.5-14.5); Segmented Neutrophils % 86.7 %
[2021-07-30 09:26] LABS: Basophils # 0.1 K/mcL (0.0-0.2); White Blood Count 24.8 K/mcL (4.3-11.1)
[2021-07-30 09:27] LABS: Platelet Estimate Normal (Normal)
[2021-07-30 10:48] LABS: Bilirubin,Urine Negative (Negative); Blood,Urine Large (Negative); Clarity,Urine Turbid (Clear); Color,Urine Amber (Yellow); Glucose,Urine (UA) Normal (Normal); Ketones,Urine Negative (Negative); Leukocyte Esterase,Urine Trace (Negative); Nitrite,Urine Negative (Negative); Protein,Urine >=300 mg/dL (Neg-Trace); Urobilinogen,Urine Normal (Normal)
[2021-07-30] MEDS: *HR* OxyCODONE Immed Rel 5 MG TABLET PO PRN (11:24)
[2021-07-30] MEDS: 0.9 % Sodium Chloride 1,000 ML IVC SCH ×2 (11:24→21:21)
[2021-07-30] MEDS ORDERED: cefTRIAXone 1,000 MG in 0.9 % Sodium Chloride Mini Bag 100 ML IVPB SCH (14:00)
[2021-07-31 06:43] LABS: Basophils # 0.1 K/mcL (0.0-0.2); Basophils % 0.4 %; Eosinophils # 0.1 K/mcL (0.0-0.6); Hematocrit 37.3 % (37.5-50.1); Immature Granulocytes % 0.3 % (0-4); Lymphocytes # 2.6 K/mcL (0.6-4.6); Lymphocytes % 22.6 %; Mean Corpuscular HGB Conc 32.4 g/dL (31.6-35.5); Mean Corpuscular Hemoglobin 31.8 pg (28.0-33.3); Mean Corpuscular Volume 97.9 fL (83.0-100.0); Mean Platelet Volume 11.3 fL (9.4-12.4); Monocytes # 1.2 K/mcL (0.0-1.3); Monocytes % 10.2 %; Platelet Count 205 K/mcL (140-400); Red Blood Count 3.81 M/mcL (4.19-5.50); Red Cell Distribution Width 15.4 % (11.5-14.5); Segmented Neutrophils % 65.5 %
[2021-07-31 06:45] LABS: Hemoglobin 12.1 g/dL (12.9-16.9); Neutrophils # 7.7 K/mcL (1.6-8.9); White Blood Count 11.7 K/mcL (4.3-11.1)
[2021-07-31 07:02] LABS: BUN/Creatinine Ratio 16 (6-26); Blood Urea Nitrogen 21 mg/dL (8-23); Calcium 8.7 mg/dL (8.6-10.3); Carbon Dioxide 22 mEq/L (23-29); Chloride 110 mEq/L (98-107); Glucose 88 mg/dL (70-105); Osmolality,Calculated 292 (280-300); Sodium 140 mEq/L (136-145); eGFR For African Americans > 60 (> 60); eGFR For Non-African Americans 57 (> 60)
[2021-07-31] MEDS: amLODIPine 5 MG TABLET PO SCH (07:52)
[2021-07-31] MEDS: *HR* Ticagrelor 90 MG TABLET PO SCH (07:52)
[2021-07-31] MEDS: Aspirin 81 MG TAB.CHEW PO SCH (07:52)
[2021-07-31] MEDS: Metoprolol XL (24 HR) Succ 25 MG TAB.ER.24H PO SCH (07:52)
[2021-07-31] MEDS: *HR* OxyCODONE Immed Rel 5 MG TABLET PO PRN ×2 (07:52→14:14)
[2021-07-31 09:14] LABS: Hematocrit 36.8 % (37.5-50.1); Hemoglobin 12.1 g/dL (12.9-16.9)
[2021-07-31 10:55] VITALS: BP 143/91; PULSE 74; TEMP 98.4; O2SAT 95
== END 2021-07-31 15:40 | disposition home or self-care (01) | DRG 463 ==
LOC: 3ANU 11:54 → EMEROOARM 11:54 → SUATTDRO 15:27 → 3ANU 16:11
PROVIDERS: ADMIT Internal Medicine; ATTEND Internal Medicine